=== PATIENT | female | born 1990 | race Two or more races ===

== ENCOUNTER 2016-12-13 15:03 | Emergency (ER) | payer SELFPAY ==
[~2016-12-13] VITALS: Ht 154.9 cm; Wt 61.2 kg
[2016-12-13] MEDS ORDERED: ACETAMINOPHEN 500 MG TAB PO ONE (17:45)
[2016-12-13] MEDS ORDERED: ONDANSETRON ODT 4 MG TAB PO ONE (18:00)
[2016-12-13 18:30] VITALS: BP 125/73
== END 2016-12-13 18:40 | disposition home or self-care (01) ==
LOC: ER 15:12
DX: R51 Headache (principal); N39.0 Urinary tract infection, site not specified; R11.10 Vomiting, unspecified; Y08.89XA Assault by other specified means, initial encounter; Y93.89 Activity, other specified; Y99.8 Other external cause status; Y92.89 Other specified places as the place of occurrence of the external cause
CPT/HCPCS: 81025; 99283; Q0162